=== PATIENT | female | born 1960 | race Caucasian/White ===

== ENCOUNTER 2019-01-21 07:42 | Emergency (ER) | payer MEDICAID ==
[~2019-01-21] VITALS: Ht 180.3 cm; Wt 102.6 kg
[~2019-01-21 07:42] MED LIST: ASPI-496 PO; CEPH-368; CHOL2000 PO; FURO-93; HCTZ PO; HYDR-3240 PO; HYDR25TA6 PO; LEVO150T5 PO; LISI-170 PO; METF500T17 PO; METO-93; OMEG1CAP34 PO; POTA10CA PO; SIMV20TA3 PO
[2019-01-21 07:53] VITALS: BP 154/88
== END 2019-01-21 10:21 | disposition left against medical advice (07) ==
LOC: ED 10:15
DX: M25.552 Pain in left hip (principal); Z53.21 Procedure and treatment not carried out due to patient leaving prior to being seen by health care provider